=== PATIENT | male | born 1980 | race Caucasian/White ===

== ENCOUNTER 2017-11-20 18:06 | Emergency (ER) | payer OTHER ==
[~2017-11-20] VITALS: Ht 170.2 cm; Wt 84.1 kg
[2017-11-20 18:10] VITALS: BP 129/79
[2017-11-20] MEDS ORDERED: POLYMYXIN B/TRIMETH OS (18:39)
[2017-11-20 19:05] VITALS: PULSE 76; TEMP 98.8
== END 2017-11-20 19:05 | disposition home or self-care (01) ==
LOC: COL.ER 18:06
DX: H57.12 Ocular pain, left eye (principal); T15.12XA Foreign body in conjunctival sac, left eye, initial encounter

== ENCOUNTER 2019-02-09 14:27 | Emergency (ER) | payer OTHER ==
[~2019-02-09] VITALS: Ht 170.2 cm; Wt 81.8 kg
[~2019-02-09 14:27] MED LIST: POLYMYXIN B/TRIMETH OS
[2019-02-09 14:43] VITALS: TEMP 97.2
[2019-02-09] MEDS ORDERED: FLEXERIL 1010 MG/TAB PO (14:45)
[2019-02-09] MEDS ORDERED: ULTRAM ER200 MG PO (14:46)
[2019-02-09] MEDS ORDERED: MOBIC 7.5MG7.5 MG PO (16:54)
[2019-02-09 17:37] VITALS: BP 128/76; PULSE 78
== END 2019-02-09 17:38 | disposition home or self-care (01) ==
LOC: COL.ER 14:27
DX: M54.5 Low back pain (principal); F17.220 Nicotine dependence, chewing tobacco, uncomplicated
CPT/HCPCS: J1885

== ENCOUNTER → 2019-03-06 | Outpatient (CLI) | payer OTHER ==
[~2019-03-06] MED LIST changes: +FLEXERIL 1010 MG/TAB PO; +MOBIC 7.5MG7.5 MG PO; +ULTRAM ER200 MG PO
== END ==
LOC: COL.RAD 13:08
DX: M48.07 Spinal stenosis, lumbosacral region (principal); M51.37 Other intervertebral disc degeneration, lumbosacral region

== ENCOUNTER → 2019-03-13 | Outpatient (CLI) | payer OTHER ==
[~2019-03-13] VITALS: Ht 170.2 cm; Wt 84.0 kg
[~2019-03-13] MED LIST changes: +MOTRIN 800800 MG/TAB PO
[2019-03-13 11:36] VITALS: BP 140/88; PULSE 76
[2019-03-13 13:05] VITALS: BP 126/85; PULSE 82
== END ==
LOC: COL.RAD 11:19
DX: M48.07 Spinal stenosis, lumbosacral region (principal)
CPT/HCPCS: J3301

== ENCOUNTER → 2019-05-23 | Outpatient (CLI) | payer OTHER ==
[~2019-05-23] VITALS: Ht 170.2 cm; Wt 78.3 kg
[~2019-05-23] MED LIST changes: +CYMBALTA 60MG60 MG PO
[2019-05-23 08:47] VITALS: BP 123/80; PULSE 76
[2019-05-23 11:20] VITALS: BP 120/86; PULSE 69
== END ==
LOC: COL.RAD 08:35
DX: M54.5 Low back pain (principal); G89.29 Other chronic pain
CPT/HCPCS: J3301

== ENCOUNTER → 2020-03-11 | Outpatient (CLI) | payer OTHER ==
[~2020-03-11] VITALS: Ht 170.2 cm; Wt 74.9 kg
[~2020-03-11] MED LIST changes: +ZOLOFT 100MG100 MG PO
[2020-03-11 13:44] VITALS: BP 128/80; PULSE 80
[2020-03-11 15:08] VITALS: BP 121/85; PULSE 71
== END ==
LOC: COL.RAD 13:30
DX: M54.5 Low back pain (principal); G89.29 Other chronic pain
CPT/HCPCS: J3301

== ENCOUNTER 2020-09-26 09:05 | Emergency (ER) | payer BC ==
[~2020-09-26] VITALS: Ht 172.7 cm; Wt 81.8 kg
[2020-09-26 09:54] LABS: BASO % 0.2 % (0.0-2.0); EOS # 0.1 (0.0-0.7); EOS % 1.6 % (0-4.0); GRAN # 6.6 (1.4-6.5); GRAN % 73.3 % (42.2-75.2); HEMATOCRIT 44.6 % (42.0-52.0); HEMOGLOBIN 15.2 g/dl (13.5-18.0); LYMPH # 1.8 (1.2-3.4); LYMPH % 19.8 % (20.0-51.0); MEAN CELL VOLUME 87 fl (80.0-100.0); MEAN CORPUSCULAR HEMOGLOBIN 30 pg (27.0-31.0); MEAN CORPUSCULAR HGB CONC 34 g/dl (33.0-37.0); MEAN PLATELET VOLUME 8.7 fl (7.4-10.4); MONO # 0.4 (0.1-0.6); MONO % 4.8 % (1.7-9.3); PLATELET COUNT 349 K/mm3 (130-400); RED BLOOD COUNT 5.11 M/mm3 (4.20-5.60); REDCELL DISTRIBUTION WIDTH-CV 12.7 % (11.5-14.5)
[2020-09-26 10:05] LABS: ALANINE AMINOTRANSFERASE 39 U/L (4-49); ALBUMIN 4.6 gm/dL (3.5-5.0); ALKALINE PHOSPHATASE 47 U/L (50-136); ANION GAP 7 mmol/L (7-16); AST,SGOT 31 U/L (15-37); BILIRUBIN,TOTAL 0.5 mg/dL (0.0-1.0); BLOOD UREA NITROGEN 11 mg/dL (9-20); CALCIUM 9.4 mg/dL (8.4-10.2); CARBON DIOXIDE 29 mmol/L (22-30); CHLORIDE 102 mmol/L (98-107); CREATININE, serum 0.79 (0.66-1.25); GLUCOSE 108 mg/dL (74-106); LIPASE 36 U/L (23-300); POTASSIUM 3.9 mmol/L (3.4-5.0); SODIUM 137 mmol/L (137-145); TOTAL PROTEIN 7.6 gm/dL (6.4-8.2)
[2020-09-26 10:08] LABS: C-REACTIVE PROTEIN < 0.5 mg/dL (0.0-0.9)
[2020-09-26 10:14] LABS: COLLECTION METHOD CLEAN CATCH
[2020-09-26 10:17] VITALS: TEMP 98.1
[2020-09-26 10:19] LABS: MUCOUS Present /lpf; PH 6 (5-8); SQUAMOUS EPITHELIAL None Seen /hpf; URINE APPEARANCE Clear; URINE BACTERIA None Seen /hpf; URINE BILIRUBIN Negative (NEGATIVE); URINE BLOOD Negative (NEGATIVE); URINE COLOR Yellow; URINE GLUCOSE Negative (NEGATIVE); URINE KETONE Negative (NEGATIVE); URINE LEUKOCYTE ESTERASE Negative (NEGATIVE); URINE NITRATE Negative (NEGATIVE); URINE PROTEIN(semi-quant) Negative (NEGATIVE); URINE RBC 0-2 /hpf; URINE UROBILINOGEN Negative (NEGATIVE)
[2020-09-26] MEDS ORDERED: NORCO 325 MG-51 TAB PO (13:48)
[2020-09-26 14:18] VITALS: BP 130/87; PULSE 82
== END 2020-09-26 14:20 | disposition home or self-care (01) ==
LOC: COL.ER 09:05
PROVIDERS: Family Medicine
DX: R10.30 Lower abdominal pain, unspecified (principal); M54.9 Dorsalgia, unspecified; R19.7 Diarrhea, unspecified; R11.2 Nausea with vomiting, unspecified; Z20.822 Contact with and (suspected) exposure to COVID-19
CPT/HCPCS: C9113; J2704; J7030; J7120

== ENCOUNTER → 2022-04-13 | Outpatient (CLI) | payer BC ==
[~2022-04-13] VITALS: Ht 172.7 cm; Wt 100.0 kg
[~2022-04-13] MED LIST changes: +NORCO 325 MG-51 TAB PO
[2022-04-13 11:56] VITALS: BP 131/57; PULSE 62; TEMP 97.5
[2022-04-13 13:06] VITALS: BP 130/87; PULSE 59
== END ==
LOC: COL.RAD 11:20
DX: M54.50 Low back pain, unspecified (principal); G89.29 Other chronic pain
CPT/HCPCS: J3301

== ENCOUNTER 2022-09-03 17:01 | Emergency (ER) | payer BC ==
[~2022-09-03] VITALS: Ht 170.2 cm; Wt 89.5 kg
[2022-09-03 17:40] VITALS: TEMP 98.4
[2022-09-03] MEDS ORDERED: CEPHALEXIN500 M1 PO (19:49)
[2022-09-03 20:03] VITALS: BP 131/74; PULSE 69
== END 2022-09-03 20:03 | disposition home or self-care (01) ==
LOC: COL.ER 17:01
DX: S61.231A Puncture wound without foreign body of left index finger without damage to nail, initial encounter (principal); Z23 Encounter for immunization; Z28.310 Unvaccinated for COVID-19; W22.8XXA Striking against or struck by other objects, initial encounter; Y92.009 Unspecified place in unspecified non-institutional (private) residence as the place of occurrence of the external cause; Y93.89 Activity, other specified

== ENCOUNTER 2023-08-05 13:22 | Emergency (ER) | payer BC ==
[~2023-08-05] VITALS: Ht 170.2 cm; Wt 91.8 kg
[~2023-08-05 13:22] MED LIST changes: +CEPHALEXIN500 M1 PO; +MEDROL 4MG DOSPA4 MG PO
[2023-08-05 14:57] LABS: TRICYCLIC ANTIDEPRESS URINE NEGATIVE
[2023-08-05 14:58] LABS: HEMATOCRIT 47.4 % (42.0-52.0); HEMOGLOBIN 16.7 g/dl (13.5-18.0); MEAN CELL VOLUME 85 fl (80.0-100.0); MEAN CORPUSCULAR HEMOGLOBIN 30 pg (27-31); MEAN CORPUSCULAR HGB CONC 35 g/dl (33.0-37.0); MEAN PLATELET VOLUME 8.1 fl (7.4-10.4); PLATELET COUNT 361 K/mm3 (130-400); RED BLOOD COUNT 5.58 M/mm3 (4.20-5.60); REDCELL DISTRIBUTION WIDTH-CV 12.6 % (11.5-14.5)
[2023-08-05 15:33] LABS: TSH w REFLEX 2.097 uIU/mL (0.350-4.940)
[2023-08-05 16:27] LABS: ACETAMINOPHEN < 1.0 ug/mL (10-30); ALANINE AMINOTRANSFERASE 56 U/L (0-55); ALBUMIN 4.5 gm/dL (3.5-5.0); ALCOHOL(ethanol),MEDICAL < 10 mg/dL (0-10); ALKALINE PHOSPHATASE 68 U/L (40-150); ANION GAP 12 mmol/L (7-16); AST,SGOT 27 U/L (5-34); BILIRUBIN,TOTAL 0.5 mg/dL (0.2-1.2); BLOOD UREA NITROGEN 13 mg/dL (9-21); CALCIUM 10.1 mg/dL (8.4-10.2); CARBON DIOXIDE 24 mmol/L (22-29); CHLORIDE 103 mmol/L (98-107); CREATININE, serum 0.89 mg/dL (0.72-1.25); GLUCOSE 100 mg/dL (70-99); POTASSIUM 3.8 mmol/L (3.5-4.5); SALICYLATE < 5.0 mg/dL (15.0-30.0); SODIUM 139 mmol/L (136-145); TOTAL PROTEIN 7.9 gm/dL (6.2-8.1)
[2023-08-05 20:16] VITALS: BP 125/87; PULSE 93; TEMP 97.4
== END 2023-08-05 20:12 ==
LOC: COL.ER 13:22
PROVIDERS: Emergency Medicine
DX: R45.851 Suicidal ideations (principal)